=== PATIENT | male | born 1960 | race Caucasian/White ===

== ENCOUNTER 2017-12-24 12:48 | Emergency (ER) | payer OTHER ==
[~2017-12-24] VITALS: Ht 177.8 cm; Wt 83.0 kg
[2017-12-24 13:45] LABS: BASOPHILS % (AUTO) 0 % (0-10); EOSINOPHILS # (AUTO) 0.2 10^3/uL (0.0-0.3); EOSINOPHILS % (AUTO) 3 % (0-10); HEMATOCRIT 41 % (40-54); LYMPHOCYTES # (AUTO) 1.9 X 10^3 (1.0-4.0); LYMPHOCYTES % (AUTO) 32 % (12-44); MEAN CORPUSCULAR HEMOGLOBIN 32 PG (25-34); MEAN CORPUSCULAR HGB CONC 37 G/DL (32-36); MEAN CORPUSCULAR VOLUME 88 FL (80-99); MEAN PLATELET VOLUME 9.5 FL (7.4-10.4); MONOCYTES # (AUTO) 0.7 X 10^3 (0.0-1.0); MONOCYTES % (AUTO) 12 % (0-12); NEUTROPHILS # (AUTO) 3.1 X 10^3 (1.8-7.8); NEUTROPHILS % (AUTO) 53 % (42-75); PLATELET COUNT 229 10^3/uL (130-400); RED BLOOD COUNT 4.68 10^6/uL (4.35-5.85); RED CELL DISTRIBUTION WIDTH 12.8 % (10.0-14.5); WHITE BLOOD COUNT 5.9 10^3/uL (4.3-11.0)
--- NOTE | 2017-12-24 13:53 | Diagnostic Imaging Report ---
INDICATION: Heart palpitations. COMPARISON: None available. FINDINGS: The visible lungs are clear. The posterior lower lobes are poorly evaluated by portable radiography. No pleural effusion or pneumothorax. Normal cardiomediastinal silhouette and pulmonary vasculature. IMPRESSION: No acute cardiopulmonary process by portable radiography. Dictated by: Dictated on workstation # [id number]
[2017-12-24 14:03] LABS: ALANINE AMINOTRANSFERASE 19 U/L (0-55); ALBUMIN 4.1 GM/DL (3.2-4.5); ALKALINE PHOSPHATASE 65 U/L (40-136); BILIRUBIN,TOTAL 0.6 MG/DL (0.1-1.0); BUN/CREATININE RATIO 15; CALCIUM 9.6 MG/DL (8.5-10.1); CARBON DIOXIDE 25 MMOL/L (21-32); CHLORIDE 108 MMOL/L (98-107); CREATININE SERUM 1.11 MG/DL (0.60-1.30); GFR ESTIMATED > 60; GLUCOSE 102 MG/DL (70-105); MAGNESIUM 2.2 MG/DL (1.8-2.4); SODIUM 139 MMOL/L (135-145)
[2017-12-24 14:23] LABS: TSH (THYROID ANALYZER) 2.15 UIU/ML (0.35-4.94)
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
[2017-12-24] MEDS ORDERED: AMLO5TAB4 PO ×2 (15:46)
== END 2017-12-24 16:00 | disposition home or self-care (01) ==
LOC: MERGE 12:51 → ER 12:51
DX: I49.1 Atrial premature depolarization (principal); I10 Essential (primary) hypertension; Z87.442 Personal history of urinary calculi; Z87.19 Personal history of other diseases of the digestive system
CPT/HCPCS: 36415; 71045; 80053; 83735; 83880; 84443; 84484; 85025; 93005; 93041

== ENCOUNTER 2017-12-26 04:04 | Observation (INO) | payer OTHER ==
[~2017-12-26] VITALS: Ht 177.8 cm; Wt 80.7 kg
[2017-12-26] VITALS (9 sets, daily range): BP systolic 110–136; BP diastolic 71–83
[~2017-12-26 04:04] MED LIST: AMLO5TAB4 PO
[2017-12-26] MEDS ORDERED: ASPIRIN 81 MG CHEW (CHILDREN'S ASA) ONE (04:15)
[2017-12-26] MEDS ORDERED: NITROGLYCERIN 2% OINT 1 GM UNIT DOSE PACKET ONE (04:15)
[2017-12-26] MEDS: NITROGLYCERIN 2% OINT 1 GM UNIT DOSE PACKET TOP ONE (04:20)
[2017-12-26 04:28] LABS: BASOPHILS % (AUTO) 0 % (0-10); EOSINOPHILS # (AUTO) 0.2 10^3/uL (0.0-0.3); EOSINOPHILS % (AUTO) 3 % (0-10); HEMATOCRIT 43 % (40-54); HEMOGLOBIN 15.9 G/DL (13.3-17.7); LYMPHOCYTES # (AUTO) 1.8 X 10^3 (1.0-4.0); LYMPHOCYTES % (AUTO) 29 % (12-44); MEAN CORPUSCULAR HEMOGLOBIN 33 PG (25-34); MEAN CORPUSCULAR HGB CONC 37 G/DL (32-36); MEAN CORPUSCULAR VOLUME 89 FL (80-99); MEAN PLATELET VOLUME 9.9 FL (7.4-10.4); MONOCYTES # (AUTO) 0.7 X 10^3 (0.0-1.0); MONOCYTES % (AUTO) 12 % (0-12); NEUTROPHILS # (AUTO) 3.4 X 10^3 (1.8-7.8); NEUTROPHILS % (AUTO) 56 % (42-75); PLATELET COUNT 234 10^3/uL (130-400); RED BLOOD COUNT 4.89 10^6/uL (4.35-5.85); WHITE BLOOD COUNT 6.1 10^3/uL (4.3-11.0)
[2017-12-26] MEDS ORDERED: ASPIRIN 81 MG CHEW (CHILDREN'S ASA) PO ONE (04:30)
[2017-12-26 04:38] LABS: PROTHROMBIN TIME PATIENT 13.4 SEC (12.2-14.7)
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
[2017-12-26 04:48] LABS: ALANINE AMINOTRANSFERASE 21 U/L (0-55); ALBUMIN 4.4 GM/DL (3.2-4.5); ALKALINE PHOSPHATASE 73 U/L (40-136); AMYLASE 85 U/L (25-125); BILIRUBIN,TOTAL 0.6 MG/DL (0.1-1.0); BUN/CREATININE RATIO 19; CALCIUM 9.9 MG/DL (8.5-10.1); CARBON DIOXIDE 22 MMOL/L (21-32); CHLORIDE 107 MMOL/L (98-107); CREATINE KINASE 496 U/L (30-200); GFR ESTIMATED > 60; GLUCOSE 97 MG/DL (70-105); LIPASE 36 U/L (8-78); MAGNESIUM 2.4 MG/DL (1.8-2.4); POTASSIUM 4.4 MMOL/L (3.6-5.0); SODIUM 139 MMOL/L (135-145); TOTAL PROTEIN 7.6 GM/DL (6.4-8.2)
[2017-12-26 04:55] LABS: CREATINE KINASE MB 1.5 NG/ML (<6.6)
[2017-12-26] MEDS ORDERED: KETOROLAC 30 MG/ML VIAL IVP ONE (05:30)
--- NOTE | 2017-12-26 06:26 | Diagnostic Imaging Report ---
EXAMINATION: Chest radiograph, portable AP view. DATE: December 26, 2017 at 0422 hours. INDICATION: 57-year-old male, left-sided chest pain. COMPARISON: December 24, 2017. FINDINGS: Heart size and mediastinal contours are unchanged. There is no identified pneumothorax. There is no large pleural effusion. There is no identified focal airspace consolidation. IMPRESSION: No identified acute cardiopulmonary abnormality. Dictated by: Dictated on workstation # [id number]
[2017-12-26] MEDS ORDERED: morphine INJ 10 MG/ML 1ML (SYR OR VIAL) IV PRN (07:15)
[2017-12-26] MEDS ORDERED: NITROGLYCERIN 0.4 MG SL TABS BTL 25'S SL PRN (07:15)
[2017-12-26] MEDS ORDERED: D5 1/2 NS W/KCL 20 MEQ/L 1,000 ML IV SCH (07:15)
[2017-12-26 10:25] LABS: CHOLESTEROL 128 MG/DL (< 200); HDL CHOLESTEROL 35 MG/DL (40-60); TRIGLYCERIDES 83 MG/DL (<150); VLDL CHOLESTEROL 17 MG/DL (5-40)
[2017-12-26 10:32] LABS: CARDIAC PROFILE 2 < 0.30 NG/ML (<0.30); MYOGLOBIN SERUM 234.4 NG/ML (10.0-92.0)
--- NOTE | 2017-12-26 10:32 | History & Physicial-Cardiolgy ---
HPI-Cardiology Cardiology Consultation: Date of Consultation 12/26/17 Date of Admission Attending Physician Amy Rankin MD Admitting Physician Yohana,Local Physician Consulting Physician Amy RANKIN MD HPI: Time Seen by Provider: 11:15 Chief Complaint: Chest pain This is a 57-year-old gentleman who presented with complains of chest pain which was mild to moderate in intensity. Continued on for one hour. No significant radiation. No significant exacerbating or relieving factors. Intensity 4/10. Significant improvement with Nitropaste. However patient's blood pressure was also elevated. Patient also continues to feel skipped beats. Patient denies syncope, near-syncope, shortness of breath. Review of Systems-Cardiology Review of Systems Constitutional: As described under HPI; No As described under HPI, No no symptoms reported, No chills, No fever, No lightheadedness Eyes: No As described under HPI, No no symptoms reported, No blindness, No blurred vision, No contact lenses, No drainage, No decreased acuity, No foreign body sensation, No pain, No vision change Ears/Nose/Throat: No As described under HPI, No no symptoms reported, No chronic hearing loss, No ear discharge, No ear pain, No nasal drainage, No ulcerations Respiratory: No no symptoms reported; As described under HPI; No As described under HPI, No cough, No orthopnea, No shortness of breath, No SOB with excertion Cardiovascular: No no symptoms reported; As described under HPI; No As described under HPI; chest pain; No edema, No irregular heart rate, No lightheadedness, No palpitations Gastrointestinal: No no symptoms reported, No As described under HPI, No abdomen distended, No abdominal pain, No blood streaked bowels, No constipation , No diarrhea, No nausea, No vomiting, No stool coloration changes Genitourinary: No As described under HPI, No burning, No dysuria, No discharge , No frequency, No flank pain, No hematuria, No urgency Skin: No rash, No skin related problems, No ulcerations Psychiatric/Neurological: No anxiety, No depression, No seizure, No focal weakness, No syncope Hematologic: No bleeding abnormalities JHB-Clhybz-Zwlaxl Hx Patient Social History Alcohol Use: Rarely Uses Recreational Drug Use: No Smoking Status: Never a Smoker Recent Foreign Travel: No Recent Infectious Disease Expo: No Hospitalization with Isolation: Denies Physical Abuse Screen: No Sexual Abuse: No Past Medical History PMH As described under Assessment. Allergies and Home Medications Allergies Coded Allergies: No Known Drug Allergies (Unverified , 12/26/17) Home Medications Amlodipine Besylate 5 Mg Tablet, 5 MG PO DAILY Prescribed by: UNIQUE FAGAN on 12/24/17 1546 Aspirin 81 Mg Tablet.dr, 81 MG PO DAILY Prescribed by: Amy RANKIN on 12/26/17 1119 [Nitroglycerin] 0.4 MG BTL, 0 MG SL UD PRN for CHEST PAIN Prescribed by: Amy RANKIN on 12/26/17 1119 Patient Home Medication List Home Medication List Reviewed: Yes Physical Exam-Cardiology Physical Exam Vital Signs/I&O Capillary Refill : Less Than 3 Seconds Constitutional: appears stated age; No apparent distress; well-developed, well- nourished HEENT: PERRL; No discharge; hearing is well preserved, oral hygience is good; No ulceration, No xanthelasmas are seen Neck: No carotid bruit; carotid pulses are 2 + bilaterally Respiratory: chest is bilaterally symmetric, lungs clear to auscultation Cardiovascular: regular rate-rhythm, S1 and S2 Gastrointestinal: No tender, No soft, No round, No distended, No pulsatile mass , No organomegaly, No guarding, No rebound, No tenderness, No hernia, No mass, No audible bowel sounds, No abnormal bowel sounds, No abdominal bruits, No spleenomegaly, No other Rectal: deferred Extremities: No normal range of motion, No non-tender, No normal inspection, No pedal edema, No calf tenderness, No normal capillary refill, No pelvis stable , No calf tenderness, No inflammation, No pedal edema, No slow capillary refill , No swelling, No other, No abrasion, No clubbing, No cyanosis, No ecchymosis, No laceration, No no lower extremity edema bilateral, No significant edema, No tenderness, No wound Neurologic/Psychiatric: no motor/sensory deficits, alert, normal mood/affect, oriented x 3, power is 5/5 both on sides Skin: No rash, No ulcerations Data Review Labs Laboratory Tests 12/26/17 04:13: White Blood Count 6.1, Red Blood Count 4.89, Hemoglobin 15.9, Hematocrit 43, Mean Corpuscular Volume 89, Mean Corpuscular Hemoglobin 33, Mean Corpuscular Hemoglobin Concent 37H, Red Cell Distribution Width 13.0, Platelet Count 234, Mean Platelet Volume 9.9, Neutrophils (%) (Auto) 56, Lymphocytes (%) (Auto) 29, Monocytes (%) (Auto) 12, Eosinophils (%) (Auto) 3, Basophils (%) (Auto) 0, Neutrophils # (Auto) 3.4, Lymphocytes # (Auto) 1.8, Monocytes # (Auto) 0.7, Eosinophils # (Auto) 0.2, Basophils # (Auto) 0.0, Prothrombin Time 13.4, INR Comment 1.0, Activated Partial Thromboplast Time 32, Sodium Level 139, Potassium Level 4.4, Chloride Level 107, Carbon Dioxide Level 22, Anion Gap 10, Blood Urea Nitrogen 19H, Creatinine 1.00, Estimat Glomerular Filtration Rate > 60, BUN/Creatinine Ratio 19, Glucose Level 97, Calcium Level 9.9, Magnesium Level 2.4, Total Bilirubin 0.6, Aspartate Amino Transf (AST/SGOT) 28, Alanine Aminotransferase (ALT/SGPT) 21, Alkaline Phosphatase 73, Total Creatine Kinase 496H, Creatine Kinase MB 1.5, Troponin I < 0.30, B-Type Natriuretic Peptide 34.1 , Total Protein 7.6, Albumin 4.4, Amylase Level 85, Lipase 36 12/26/17 09:58: Troponin I < 0.30, Myoglobin 234.4H, Triglycerides Level 83, Cholesterol Level 128, LDL Cholesterol Direct 89, VLDL Cholesterol 17, HDL Cholesterol 35L ECG Impression ECG Initial ECG Rhythm: Normal Sinus, PAC A/P-Cardiology Assessment/Admission Diagnosis Chest pain, PACs, Hypertension Admission Status: Observation Plan Chest pain: ACS ruled out with serial negative troponin and EKG. Inpatient Nuclear stress test recommended but patient wants to go home. understands the risks. will continue aspirin. will prescribe ntg prn. Nuclear stress test early next week. Echo shows normal LVEF and no wall motion abnormalities. PACs: continue BB. Hypertension: continue BB and amlodipine. Kidney stones with occasional bleeding: decided not to give plavix. Lipid profile within reasonable limits. Clinical Quality Measures AMI/AHF: ASA po Prior to arrival: No DVT/VTE Risk/Contraindication: Risk Factor Score Per Nursin RFS Level Per Nursing on Admit: 1=Low/No VTE PPX Amy RANKIN MD Dec 26, 2017 10:31
--- NOTE | 2017-12-26 11:18 | Cardiology Discharge Summary ---
Diagnosis/Chief Complaint Date of Admission Dec 26, 2017 at 5:05 am Date of Discharge 12/26/2017 Admission Diagnosis Chest pain, PACs, hypertension Final/Discharge Diagnosis Chest pain, PACs, hypertension Chief Complaint/HPI Chief Complaint/HPI This is a 57-year-old gentleman who presented with complains of chest pain which was mild to moderate in intensity. Continued on for one hour. No significant radiation. No significant exacerbating or relieving factors. Intensity 4/10. Significant improvement with Nitropaste. However patient's blood pressure was also elevated. Patient also continues to feel skipped beats. Patient denies syncope, near-syncope, shortness of breath. Discharge Summary Procedures None. Discharge Physical Examination Normal cardiovascular examination Hospital Course Unremarkable. Pending Labs Discussion & Recommendations Discussion Nuclear stress test was recommended inpatient. However the patient wanted to leave. It will be scheduled as an outpatient. Patient understands all the risks. If he has any further prolonged chest pain he will seek immediate medical attention. He will be given when necessary nitroglycerin. He will continue aspirin. Amlodipine for blood pressure. No beta blockers since he has sinus bradycardia. Follow up appt.: Nuclear stress test next week. Follow-up with Dr. Rankin. Dicharge Diet: Cardiac Diet Activity as Tolerated: Yes Home Medications Reviewed patient Home Medication Reconciliation performed by pharmacy medication reconciliations operations technician and/or nursing. Patients Allergies have been reviewed. Discharge Home Medications: Reviewed and agree with Discharge Medication list on patient's Discharge Instruction sheet Condition at discharge Stable. Instructions to patient/family Discussed at length with the patient and family. Clinical Quality Measures AMI/AHF: ASA po Prior to arrival: No DVT/VTE Risk/Contraindication: Risk Factor Score Per Nursin RFS Level Per Nursing on Admit: 1=Low/No VTE PPX Amy RANKIN MD Dec 26, 2017 11:18
[2017-12-26] MEDS ORDERED: ASPI-983 PO ×2 (11:19)
[2017-12-26] MEDS ORDERED: Nitroglycerin SL ×2 (11:19)
--- NOTE | 2017-12-26 11:20 | Discharge Inst-Cardiology ---
Discharge Inst-Cardiac Patient Instructions Patient Instructions: Nuclear stress test as outpatient Return to [facility] For: chest pain Activity & Diet Discharge Diet: Cardiac Diet Drink 6-8 Glasses/Fluids/Day: Yes Activity as Tolerated: Yes Amy NAVA MD Dec 26, 2017 11:20 am
[2017-12-26] MEDS ORDERED: NITROGLYCERIN 2% OINT 1 GM UNIT DOSE PACKET TOP SCH (12:00)
[2017-12-27] MEDS ORDERED: ASPIRIN E.C. 81 MG (ECOTRIN) TAB PO SCH (09:00)
== END 2017-12-26 11:30 | disposition home or self-care (01) ==
LOC: EDUNIT# 04:04 → ER 04:06 → UNDOADMOB 05:05 → ICU 05:05 → MERGE 05:44 → ICU 05:44 → UNDODISOB 11:30
PROVIDERS: ADMIT Internal Medicine Interventional Cardiology; ATTEND Internal Medicine Interventional Cardiology
DX: R07.9 Chest pain, unspecified (principal); I49.1 Atrial premature depolarization; I10 Essential (primary) hypertension; Z87.442 Personal history of urinary calculi
CPT/HCPCS: 36415; 71045; 80053; 80061; 82150; 82550; 82553; 83690; 83735; 83874; 83880; 84484; 85025; 85610; 85730; 93005; 93041; 93306; 96374

== ENCOUNTER → 2017-12-30 | Outpatient (CLI) | payer OTHER ==
[~2017-12-30] MED LIST changes: +ASPI-983 PO; +CATHETER FLUSH 10 ML SYR IV PRN; +Nitroglycerin SL; +REGADENOSON 0.4 MG/5 ML SYR (LEXISCAN) IV ONE
[2017-12-30 09:29] VITALS: BP 158/98
--- NOTE | 2017-12-30 17:00 | Cardiology Stress Test Report ---
Stress Test Report Type of NM Stress Test: Test Type: LEXISCAN 0.4MG/5ML Date of Procedure/Referring: Date of Procedure: Dec 30, 2017 PCP Amy Rankin MD Admitting Physician No,Local Physician Indications: Chest pain Baseline Blood Pressure: Blood Pressure Systolic: 158 Blood Pressure Diastolic: 98 Summary: The patient was brought to the stress lab after informed consent was taken. Lexiscan stress test was performed according to the protocol. 0.4 mg of IV Lexiscan was given. Low-grade exercise was performed. Baseline EKG showed sinus rhythm at 45 BPM with blood pressure 150/90 mmHg. Maximum heart rate of 72 bpm and blood pressure of 158/98 mmHg. No chest pain, EKG changes or arrhythmias were noted. 10.97 mCi of Myoview were given for rest imaging and 28.4 mCi of Myoview were given for stress imaging. Transient ischemic dilatation score 1.08. Ejection fraction 62 percent with no wall motion abnormalities. Normal perfusion was noted during stress and rest imaging. Conclusion: Normal myocardial perfusion imaging during rest and stress. Normal LV function with no wall motion abnormalities. Amy RANKIN MD Dec 30, 2017 5:00 pm
== END ==
LOC: MERGE 06:56 → CARD 06:56
PROVIDERS: ATTEND Internal Medicine Interventional Cardiology
DX: R07.9 Chest pain, unspecified (principal)
CPT/HCPCS: 78452; 93017

== ENCOUNTER 2018-02-25 11:23 | Outpatient (CLI) | payer OTHER ==
[~2018-02-25] VITALS: Ht 177.8 cm; Wt 83.9 kg
[~2018-02-25 11:23] MED LIST changes: -AMLO5TAB7 PO; -CARV25TA PO; -CELE200C PO; -HYDR-3870 PO; -LOSA100T8 PO; -NITR-65 PO; -TAMS0.4C98 PO
[2018-02-25] MEDS ORDERED: CARV25TA PO (11:53)
[2018-02-25] MEDS ORDERED: AMLO5TAB7 PO (11:57)
[2018-02-25] MEDS ORDERED: LOSA100T8 PO (11:57)
[2018-02-25] MEDS ORDERED: CELE200C PO (11:57)
== END 2018-02-25 12:00 | disposition home or self-care (01) ==
LOC: PREOP 11:23
PROVIDERS: ATTEND Urology
DX: Z01.818 Encounter for other preprocedural examination (principal)

== ENCOUNTER → 2018-02-25 | Outpatient (CLI) | payer OTHER ==
[~2018-02-25] MED LIST changes: +AMLO5TAB7 PO; +CARV25TA PO; -CATHETER FLUSH 10 ML SYR IV PRN; +CELE200C PO; +HYDR-3870 PO; +LOSA100T8 PO; +NITR-65 PO; -REGADENOSON 0.4 MG/5 ML SYR (LEXISCAN) IV ONE; +TAMS0.4C98 PO
--- NOTE | 2018-02-25 11:51 | Diagnostic Imaging Report ---
Supine abdomen at 9:07. Indication: Nephrolithiasis. There are no prior studies available for comparison. There are calcific densities overlying both kidneys. The largest of these measures 1 cm and overlies the midportion of the right kidney. The other calcifications measure less than 5 mm in size. These calcifications may well be intrarenal. There is no sign of a calculus along the expected paths of the ureters. There do appear to be a few small rounded calcifications along the pelvis. These may represent phleboliths. There is no mass or organomegaly appreciated. The bowel gas pattern is nonspecific. There is moderate degenerative disc and bony disease in the lower lumbar spine. There is no acute abnormality identified. Surgiclips are evident in the right upper quadrant. Impression: 1. There are calcifications overlying both kidneys. These may well be intrarenal. If there is clinical concern regarding obstruction of either collecting system, then CT would be recommended for further study. 2. There is no acute abnormality of the abdomen or pelvis. Dictated by: Dictated on workstation # [id number]
== END ==
LOC: RAD 08:25
PROVIDERS: ATTEND Urology
DX: N20.0 Calculus of kidney (principal); N28.89 Other specified disorders of kidney and ureter
CPT/HCPCS: 74018

== ENCOUNTER 2018-03-01 08:46 | Day surgery (SDC) | payer OTHER ==
[~2018-03-01] VITALS: Ht 177.8 cm; Wt 83.9 kg
[~2018-03-01 08:46] MED LIST changes: +AMLO5TAB7 PO; +CARV25TA PO; +CELE200C PO; +LOSA100T8 PO
[2018-03-01 08:56] VITALS: BP 155/113
[2018-03-01] MEDS ORDERED: LACTATED RINGERS 1,000 ML IV PRN (09:13)
--- NOTE | 2018-03-01 09:13 | Progress Note-Pre Operative ---
Pre-Operative Progress Note H&P Reviewed The H&P was reviewed, patient examined and no changes noted. Date Seen by Provider: Mar 01, 2018 Time Seen by Provider: 09:13 Date H&P Reviewed: Mar 01, 2018 Time H&P Reviewed: 09:13 Pre-Operative Diagnosis: RT RENAL STONE VALERIA AGRAWAL MD Mar 01, 2018 9:13 am
[2018-03-01] MEDS ORDERED: cefTRIAXone FOR IV USE 1,000 MG in NS (IVPB) 50 ML IV ONE (09:15)
[2018-03-01] MEDS ORDERED: CATHETER FLUSH 10 ML SYR IV PRN (09:45)
--- NOTE | 2018-03-01 09:46 | Diagnostic Imaging Report ---
INDICATION: Nephrolithiasis. Comparison made with prior examination from 02/25/18. FINDINGS: Bowel gas pattern is nonspecific. There are calcifications projected over both kidneys compatible with nephrolithiasis. There are mild degenerative changes in the spine. There are surgical clips in the right upper quadrant. IMPRESSION: Unchanged bilateral nephrolithiasis. Nonspecific bowel gas pattern. Dictated by: Dictated on workstation # [id number]
[2018-03-01] MEDS ORDERED: MIDAZOLAM 2 MG/2 ML (VERSED) VIAL ONE (11:40)
[2018-03-01] MEDS ORDERED: SEVOFLURANE (ULTANE) 15 ML INHAL SOLN ONE (11:40)
[2018-03-01] MEDS ORDERED: LIDOCAINE PF 2% 2 ML (XYLOCAINE) VIAL ONE (11:40)
[2018-03-01] MEDS ORDERED: proPOfol 200 MG/20 ML (DIPRIVAN) VIAL IV ONE (11:40)
[2018-03-01] MEDS ORDERED: fentaNYL INJECTION 100 MCG/2 ML AMP ONE (11:40)
[2018-03-01] MEDS ORDERED: ONDANSETRON 4 MG/2 ML (SDV) Z0FRAN ONE (11:40)
[2018-03-01] MEDS ORDERED: KETOROLAC 30 MG/ML VIAL ONE (12:10)
[2018-03-01] MEDS ORDERED: FUROSEMIDE 40 MG/4 ML INJ (LASIX) ONE (12:10)
--- NOTE | 2018-03-01 12:10 | Discharge Inst-Urology ---
Discharge Inst-Urology Discharge Medications New, Converted, or Re-newed RX: RX on Chart Patient Instructions/Follow Up Plan Please make appointment to been seen in office , KUB prior to it KUB on way home Post ESWL instructions Increase oral fluids for 48 hours and then as needed. Diet and Activity as tolerated. If questions or concerns contact your physician Or seek help at emergency department. VALERIA AGRAWAL MD Mar 01, 2018 12:10 pm
--- NOTE | 2018-03-01 12:13 | Progress Note-Post Operative ---
Post-Operative Progess Note Surgeon (s)/Cabin Service Agent (s) Surgeon VALERIA AGRAWAL MD Cabin Service Agent: NONE Pre-Operative Diagnosis RT RENAL STONE Post-Operative Diagnosis SAME Procedure & Operative Findings Date of Procedure 03/01/18 Procedure Performed/Findings RT ESWL Anesthesia Type GENERAL Estimated Blood Loss Estimated blood loss (mL): NONE Specimens/Packing Specimens Removed NONE Packing: NONE VALERIA AGRAWAL MD Mar 01, 2018 12:13
[2018-03-01] MEDS ORDERED: fentaNYL INJECTION 100 MCG/2 ML AMP IVP ONE (12:45)
[2018-03-01] MEDS ORDERED: HYDROmorphone 2 MG/ML VIAL (DILAUDID) IV ONE (12:45)
[2018-03-01] MEDS ORDERED: MEPERIDINE (DEMEROL) INJ 50 MG/ML IVP ONE (12:45)
[2018-03-01] MEDS ORDERED: ONDANSETRON 4 MG/2 ML (SDV) Z0FRAN IVP PRN (12:45)
--- NOTE | 2018-03-01 12:53 | Anesthesia-General Post-Op ---
General Patient Condition Mental Status/LOC: Same as Preop Cardiovascular: Satisfactory Nausea/Vomiting: Absent Respiratory: Satisfactory Pain: Controlled Complications: Absent Post Op Complications Complications None Follow Up Care/Instructions Patient Instructions None needed. Anesthesia/Patient Condition Patient Condition Patient is doing well, no complaints, stable vital signs, no apparent adverse anesthesia problems. No complications reported per nursing. D/C home per [facility] Criteria: Yes SRIDHAR JASSO CRNA Mar 01, 2018 12:53
[2018-03-01 13:25] VITALS: BP 142/97
[2018-03-01] MEDS ORDERED: NITR-65 PO (13:29)
[2018-03-01] MEDS ORDERED: TAMS0.4C98 PO (13:29)
[2018-03-01] MEDS ORDERED: HYDR-3870 PO (13:29)
[2018-03-01 13:55] VITALS: BP 126/93
[2018-03-01 14:25] VITALS: BP 140/90
[2018-03-01 14:45] VITALS: BP 140/90
--- NOTE | 2018-03-01 15:12 | Diagnostic Imaging Report ---
INDICATION: Post extracorporeal shock wave lithotripsy, nephrolithiasis. TECHNIQUE: Single supine view of the abdomen at 2:56 PM. CORRELATION STUDY: 03/01/2018. FINDINGS: Multiple calcifications over the bilateral renal silhouettes are again demonstrated. On the right, there has been a change in the appearance and distribution. What appears to be a larger stone over the inferior pole appears to be somewhat more fragmented with some calcification now suggested about the mid to superior portion. Calcifications over the left kidney appear unchanged. No definitive calcification along the expected course of either ureter with small calcifications in the pelvis unchanged. IMPRESSION: Change in the appearance and distribution of the calcifications over the right kidney from earlier in the day. Left sided nephrolithiasis appearing generally stable. Dictated by: Dictated on workstation # [id number]
--- NOTE | 2018-03-01 18:47 | OPERATIVE REPORT ---
DATE OF SERVICE: 03/01/2018 PREOPERATIVE DIAGNOSIS: Right renal stone. POSTOPERATIVE DIAGNOSIS: Right renal stone. OPERATION PERFORMED: Right ESWL. SURGEON: Mahendra Agrawal MD ANESTHESIA: General. COMPLICATIONS: None. DESCRIPTION OF PROCEDURE: Under satisfactory general anesthesia, the patient in supine position on the ESWL table, the right renal stone was localized. Stone was delivered at kV of 4, 2500 shocks completely fragment the stone. The patient received 40 mg of Lasix and 30 mg of Toradol IV at the end of the procedure. He tolerated the procedure and anesthesia well and was sent to recovery room in stable condition. Job ID: [id number] DocumentID: [id number] Dictated Date: 03/01/2018 12:23:04 Social Services Analyst Date: 03/01/2018 18:46:57 Dictated By: MAHENDRA AGRAWAL MD
== END 2018-03-01 14:45 | disposition home or self-care (01) ==
LOC: SDC 08:46
PROVIDERS: ATTEND Urology
DX: N20.0 Calculus of kidney (principal); I10 Essential (primary) hypertension; Z79.899 Other long term (current) drug therapy
CPT/HCPCS: 74018; 87081

== ENCOUNTER 2018-03-15 05:30 | Outpatient (CLI) | payer OTHER ==
[~2018-03-15] VITALS: Ht 177.8 cm; Wt 83.9 kg
[2018-03-16] MEDS ORDERED: NITR-65 PO (11:44)
[2018-03-16] MEDS ORDERED: TAMS0.4C98 PO (11:44)
[2018-03-16] MEDS ORDERED: HYDR-3870 PO (11:44)
== END 2018-03-15 15:31 | disposition home or self-care (01) ==
LOC: PREOP 05:30
PROVIDERS: ATTEND Urology
DX: Z01.818 Encounter for other preprocedural examination (principal)

== ENCOUNTER → 2018-03-15 | Outpatient (CLI) | payer OTHER ==
[~2018-03-15] MED LIST changes: +HYDR-3870 PO; +NITR-65 PO; +TAMS0.4C98 PO
--- NOTE | 2018-03-15 14:22 | Diagnostic Imaging Report ---
INDICATION: Right renal stone. Comparison made with prior examination 03/01/2018. Two views were obtained. FINDINGS: There are persistent stones projected over both kidneys. There are few calcified phleboliths in the pelvis. Bowel gas pattern is nonspecific. There are surgical clips in right upper quadrant. IMPRESSION: Bilateral nephrolithiasis. Nonspecific bowel gas pattern. Dictated by: Dictated on workstation # [id number]
== END ==
LOC: RAD 12:41
PROVIDERS: ATTEND Urology
DX: N20.0 Calculus of kidney (principal)
CPT/HCPCS: 74018

== ENCOUNTER 2018-03-16 07:00 | Day surgery (SDC) | payer OTHER ==
[~2018-03-16] VITALS: Ht 177.8 cm; Wt 83.9 kg
[2018-03-16] MEDS ORDERED: cefTRIAXone FOR IV USE 1,000 MG in NS (IVPB) 50 ML IV ONE (07:15)
[2018-03-16 07:25] VITALS: BP 160/108
[2018-03-16] MEDS: LACTATED RINGERS 1,000 ML IV PRN ×2 (07:40→09:45)
[2018-03-16] MEDS ORDERED: CATHETER FLUSH 10 ML SYR IV PRN (07:45)
--- NOTE | 2018-03-16 08:09 | Progress Note-Pre Operative ---
Pre-Operative Progress Note H&P Reviewed The H&P was reviewed, patient examined and no changes noted. Date Seen by Provider: Mar 16, 2018 Time Seen by Provider: 08:08 Date H&P Reviewed: Mar 16, 2018 Time H&P Reviewed: 08:08 Pre-Operative Diagnosis: LT RENAL STONE VALERIA AGRAWAL MD Mar 16, 2018 8:09 am
--- NOTE | 2018-03-16 08:27 | Diagnostic Imaging Report ---
INDICATION: Left renal stone. TECHNIQUE: Single supine view of the abdomen 7:50 AM CORRELATION STUDY: 03/15/2018 FINDINGS: Calcification again project over both renal silhouettes. Largest projecting over the inferior pole right kidney measures 9 mm. Largest over the mid to superior pole left kidney measuring approximately 7 mm. Additional smaller ones over the mid inferior pole left kidney. Overall stone burden in appearance is generally stable. Calcification of the pelvis appear unchanged favoring phleboliths. Nonobstructive appearing bowel gas pattern. Mild rightward curvature of the lumbar spine with apex at L3. IMPRESSION: 1. Findings compatible with bilateral renal stones. Stone burden overall appearing generally stable. Dictated by: Dictated on workstation # [id number]
[2018-03-16] MEDS ORDERED: fentaNYL INJECTION 100 MCG/2 ML AMP ONE (09:29)
[2018-03-16] MEDS ORDERED: MIDAZOLAM 2 MG/2 ML (VERSED) VIAL ONE (09:29)
[2018-03-16] MEDS ORDERED: proPOfol 200 MG/20 ML (DIPRIVAN) VIAL IV ONE (09:34)
[2018-03-16] MEDS ORDERED: FUROSEMIDE 40 MG/4 ML INJ (LASIX) ONE (09:34)
[2018-03-16] MEDS ORDERED: LIDOCAINE PF 2% 5 ML (XYLOCAINE) VIAL ONE (09:34)
[2018-03-16] MEDS ORDERED: SEVOFLURANE (ULTANE) 15 ML INHAL SOLN ONE ×2 (09:34→10:17)
[2018-03-16] MEDS ORDERED: KETOROLAC 30 MG/ML VIAL ONE (09:34)
[2018-03-16] MEDS ORDERED: DEXAMETHASONE 10 MG/ML (DECADRON) 1 ML VIAL ONE (09:34)
[2018-03-16] MEDS ORDERED: ONDANSETRON 4 MG/2 ML (SDV) Z0FRAN ONE (09:34)
--- NOTE | 2018-03-16 10:15 | Progress Note-Post Operative ---
Post-Operative Progess Note Surgeon (s)/Plan Manager (s) Surgeon VALERIA AGRAWAL MD Plan Manager: NONE Pre-Operative Diagnosis LT RENAL STONE Post-Operative Diagnosis SAME Procedure & Operative Findings Date of Procedure 03/16/18 Procedure Performed/Findings LT ESWL Anesthesia Type GENERAL Estimated Blood Loss Estimated blood loss (mL): NONE Specimens/Packing Specimens Removed NONE Packing: NONE VALERIA AGRAWAL MD Mar 16, 2018 10:15 am
--- NOTE | 2018-03-16 10:17 | Discharge Inst-Urology ---
Discharge Inst-Urology Discharge Medications New, Converted, or Re-newed RX: RX on Chart Patient Instructions/Follow Up Plan Please make appointment to been seen in office in 2 weeks. KUB prior to it KUB on way home Post ESWL instructions Increase oral fluids for 48 hours and then as needed. Diet and Activity as tolerated. If questions or concerns contact your physician Or seek help at emergency department. VALERIA AGRAWAL MD Mar 16, 2018 10:17 am
[2018-03-16] MEDS ORDERED: NS IV 1000 ML 1,000 ML IV SCH (10:45)
[2018-03-16] MEDS ORDERED: HYDROmorphone 2 MG/ML VIAL (DILAUDID) ONE (10:49)
[2018-03-16] MEDS ORDERED: HYDROmorphone 2 MG/ML VIAL (DILAUDID) IV ONE (11:00)
[2018-03-16 11:30] VITALS: BP 114/81
[2018-03-16 11:35] VITALS: BP 114/81
[2018-03-16] MEDS ORDERED: TAMS0.4C98 PO (11:44)
[2018-03-16] MEDS ORDERED: NITR-65 PO (11:44)
[2018-03-16] MEDS ORDERED: HYDR-3870 PO (11:44)
[2018-03-16 12:00] VITALS: BP 120/78
[2018-03-16 12:30] VITALS: BP 109/75
--- NOTE | 2018-03-16 13:18 | OPERATIVE REPORT ---
DATE OF SERVICE: 03/16/2018 PREOPERATIVE DIAGNOSIS: Left renal stones. POSTOPERATIVE DIAGNOSIS: Left renal stones. OPERATION PERFORMED: Left ESWL. SURGEON: Mahendra Agrawal MD ANESTHESIA: General. COMPLICATIONS: None. DESCRIPTION OF PROCEDURE: Under satisfactory general anesthesia, the patient in supine position on the ESWL table. The left larger stone was localized. Shocks were delivered at a kV of 4. Total of 1500 shocks completely fragmented the stone that was not visualized any more. The other stones in the kidney were too small to blast any way. The patient received 40 mg of Lasix and 30 mg of Toradol IV at the end of the procedure. He tolerated the procedure and anesthesia well and was sent to recovery room in stable condition. Job ID: [id number] DocumentID: [id number] Dictated Date: 03/16/2018 10:20:56 Commissioning Engineer Date: 03/16/2018 13:17:46 Dictated By: MAHENDRA AGRAWAL MD
--- NOTE | 2018-03-16 13:19 | Diagnostic Imaging Report ---
INDICATION: Post extracorporeal shockwave lithotripsy. TECHNIQUE: Single supine view of the abdomen at 12:23 p.m. CORRELATION STUDY: 03/16/2018. FINDINGS: Rounded calcification of the inferior pole of the right kidney, unchanged. There appears to be some interval fragmentation of the calcifications over the left kidney, particularly at the more superior pole calcification. Overall size and region of the calcification appears generally stable. No definitive calcification along the expected course of either ureter. Multiple calcifications of the pelvis are present. IMPRESSION: 1. Some interval fragmentation is suggest about the left renal stones. Dictated by: Dictated on workstation # [id number]
--- NOTE | 2018-03-16 15:17 | Anesthesia-General Post-Op ---
General Patient Condition Mental Status/LOC: Same as Preop Cardiovascular: Satisfactory Nausea/Vomiting: Absent Respiratory: Satisfactory Pain: Controlled Complications: Absent Post Op Complications Complications None Follow Up Care/Instructions Patient Instructions None needed. Anesthesia/Patient Condition Patient Condition Patient was seen after the procedure and he was doing well, no complaints, stable vital signs, no apparent adverse anesthesia problems. SINGH OREILLY DO Mar 16, 2018 15:17
== END 2018-03-16 12:50 | disposition home or self-care (01) ==
LOC: SDC 07:00
PROVIDERS: ATTEND Urology
DX: N20.0 Calculus of kidney (principal); I10 Essential (primary) hypertension; Z79.899 Other long term (current) drug therapy
CPT/HCPCS: 74018; 87081

== ENCOUNTER → 2018-03-30 | Outpatient (CLI) | payer OTHER ==
--- NOTE | 2018-03-30 15:43 | Diagnostic Imaging Report ---
INDICATION: Status post left-sided lithotripsy. TIME OF EXAM: 2:25 PM COMPARISON: Correlation is made with prior exam from 03/16/2018. FINDINGS: Calcific density overlies the right kidney, unchanged. There are multiple calcific densities overlying the left kidney. There may be some fragmentation of the calculi since prior study, status post lithotripsy. No definite ureteral calculi are seen. Bowel gas pattern is unremarkable. IMPRESSION: There has been some fragmentation of left-sided renal calculi, status post lithotripsy. No ureteral calculi are seen. Dictated by: Dictated on workstation # [id number]
== END ==
LOC: RAD 13:56
PROVIDERS: ATTEND Urology
DX: N20.0 Calculus of kidney (principal); Z98.890 Other specified postprocedural states
CPT/HCPCS: 74018; 88300

== ENCOUNTER 2018-04-09 08:09 | Outpatient (RCR) | payer OTHER ==
[~2018-04-09 08:09] MED LIST changes: -AMLO5TAB7 PO; +AMLO5TAB9 PO; +LOSA100T57 PO; -LOSA100T8 PO
== END 2018-06-28 | disposition home or self-care (01) ==
LOC: LAB 08:09
PROVIDERS: ATTEND Urology
DX: N20.0 Calculus of kidney (principal)
CPT/HCPCS: 36415; 82140; 82340; 82507; 82570; 83735; 83945; 83986; 84105; 84133; 84300; 84392; 84560

== ENCOUNTER → 2018-04-27 | Outpatient (CLI) | payer OTHER ==
[~2018-04-27] MED LIST changes: +AMLO5TAB7 PO; -AMLO5TAB9 PO; -LOSA100T57 PO; +LOSA100T8 PO
--- NOTE | 2018-04-27 15:41 | Diagnostic Imaging Report ---
INDICATION: Nephrolithiasis. EXAMINATION: KUB. FINDINGS: There are several stone fragments projecting over the lower pole of the left kidney. There is a 6 mm calculus projecting over the inferior pole of the right kidney. IMPRESSION: Bilateral nephrolithiasis. No appreciable change since 03/30/2018. Dictated by: Dictated on workstation # [id number]
== END ==
LOC: RAD 14:45
PROVIDERS: ATTEND Urology
DX: N20.0 Calculus of kidney (principal)
CPT/HCPCS: 74018

== ENCOUNTER 2019-01-30 05:34 | Outpatient (CLI) | payer BC ==
[~2019-01-30] VITALS: Ht 177.8 cm; Wt 72.6 kg
[~2019-01-30 05:34] MED LIST changes: -AMLO5TAB7 PO; +AMLO5TAB9 PO; +LOSA100T57 PO; -LOSA100T8 PO
[2019-01-30] MEDS ORDERED: HYDR-3820 PO (09:11)
[2019-01-30] MEDS ORDERED: BACL10TA PO (09:11)
[2019-01-31] MEDS ORDERED: HYDR-3870 PO (13:14)
[2019-01-31] MEDS ORDERED: TAMS0.4C98 PO (13:14)
[2019-01-31] MEDS ORDERED: NITR-65 PO (13:14)
== END 2019-01-30 09:20 | disposition home or self-care (01) ==
LOC: PREOP 05:34
PROVIDERS: ATTEND Urology
DX: Z01.818 Encounter for other preprocedural examination (principal); N20.0 Calculus of kidney

== ENCOUNTER 2019-01-31 07:21 | Day surgery (SDC) | payer BC, OTHER ==
[~2019-01-31] VITALS: Ht 177.8 cm; Wt 72.6 kg
[2019-01-31] VITALS (9 sets, daily range): BP systolic 116–177; BP diastolic 75–103
[~2019-01-31 07:21] MED LIST changes: +BACL10TA PO; +HYDR-3820 PO
[2019-01-31] MEDS: LACTATED RINGERS 1,000 ML IV PRN ×2 (07:45→11:06)
[2019-01-31] MEDS ORDERED: cefTRIAXone FOR IV USE 1,000 MG in WATER (STERILE) FOR INJECTION 10 ML IV ONE (07:45)
--- NOTE | 2019-01-31 07:46 | Progress Note-Pre Operative ---
Pre-Operative Progress Note H&P Reviewed The H&P was reviewed, patient examined and no changes noted. Date Seen by Provider: Jan 31, 2019 Time Seen by Provider: 07:45 Date H&P Reviewed: Jan 31, 2019 Time H&P Reviewed: 07:45 Pre-Operative Diagnosis: LT RENAL STONE VALERIA AGRAWAL MD Jan 31, 2019 07:46
[2019-01-31] MEDS ORDERED: MIDAZOLAM 2 MG/2 ML (VERSED) VIAL IV ONE (08:45)
--- NOTE | 2019-01-31 09:11 | Diagnostic Imaging Report ---
INDICATION: Renal stones. COMPARISON: 01/27/2019. EXAMINATION: Two radiographs of the abdomen dated 01/31/2019. FINDINGS: There are surgical clips within the right upper quadrant of the abdomen. The 0.9 cm calcification overlying the right renal shadow is again identified and stable. Multiple calcifications are again identified overlying the left renal shadow with the largest measuring 0.5 cm. These calcifications do not appear significantly changed since the prior examination. Phleboliths within the lower pelvis appear stable. No new calcifications along the expected course of the bilateral ureters. Nonobstructed bowel gas pattern. [place] right curvature of the spine with associated degenerative changes. No acute osseous abnormality. IMPRESSION: Bilateral renal calculi with the stone burden appearing similar to the prior examination. Dictated by: Dictated on workstation # [id number]
[2019-01-31] MEDS ORDERED: MIDAZOLAM 2 MG/2 ML (VERSED) VIAL ONE (10:24)
[2019-01-31] MEDS ORDERED: LIDOCAINE PF 2% 5 ML (XYLOCAINE) VIAL ONE (10:24)
[2019-01-31] MEDS ORDERED: proPOfol 200 MG/20 ML (DIPRIVAN) VIAL IV ONE (10:24)
[2019-01-31] MEDS ORDERED: ONDANSETRON 4 MG/2 ML (SDV) Z0FRAN ONE (10:24)
[2019-01-31] MEDS ORDERED: fentaNYL INJECTION 100 MCG/2 ML AMP ONE (10:24)
[2019-01-31] MEDS ORDERED: FUROSEMIDE 40 MG/4 ML INJ (LASIX) ONE (10:27)
[2019-01-31] MEDS ORDERED: KETOROLAC 30 MG/ML VIAL ONE (10:27)
[2019-01-31] MEDS ORDERED: SEVOFLURANE (ULTANE) 15 ML INHAL SOLN ONE ×7 (10:27→11:57)
--- NOTE | 2019-01-31 10:55 | Progress Note-Post Operative ---
Post-Operative Progess Note Surgeon (s)/Advertising Statistical Clerk (s) Surgeon VALERIA AGRAWAL MD Advertising Statistical Clerk: NONE Pre-Operative Diagnosis BILATERAL RENAL STONES Post-Operative Diagnosis SAME Procedure & Operative Findings Date of Procedure 01/31/19 Procedure Performed/Findings BILATERAL ESWL Anesthesia Type GENERAL Estimated Blood Loss Estimated blood loss (mL): NONE Specimens/Packing Specimens Removed NONE Packing: NONE VALERIA AGRAWAL MD Jan 31, 2019 10:55
--- NOTE | 2019-01-31 10:58 | Discharge Inst-Urology ---
Discharge Inst-Urology Reconcile Patient Problems Problems Reviewed?: Yes Patient Instructions/Follow Up Plan/Assessment/Instructions Please make appointment to been seen in office in 2 weeks. KUB prior to it KUB on way home Post ESWL instructions Increase oral fluids for 48 hours and then as needed. Diet and Activity as tolerated. If questions or concerns contact your physician Or seek help at emergency department. VALERIA AGRAWAL MD Jan 31, 2019 10:58
[2019-01-31] MEDS ORDERED: fentaNYL INJECTION 100 MCG/2 ML AMP IVP ONE (12:30)
[2019-01-31] MEDS ORDERED: ONDANSETRON 4 MG/2 ML (SDV) Z0FRAN IVP PRN (12:30)
[2019-01-31] MEDS ORDERED: TAMS0.4C98 PO (13:14)
[2019-01-31] MEDS ORDERED: NITR-65 PO (13:14)
[2019-01-31] MEDS ORDERED: HYDR-3870 PO (13:14)
--- NOTE | 2019-01-31 14:23 | OPERATIVE REPORT ---
DATE OF SERVICE: 01/31/2019 PREOPERATIVE DIAGNOSIS: Bilateral renal stones. POSTOPERATIVE DIAGNOSIS: Bilateral renal stones. OPERATION PERFORMED: Bilateral ESWL. SURGEON: Mahendra Agrawal MD ANESTHESIA: General. COMPLICATIONS: None. DESCRIPTION OF PROCEDURE: Under satisfactory general anesthesia, the patient in supine position on the ESWL table, we first localized the right renal stone. Delivered shocks at kV of 6 and 3,000 shocks showed good fragmentation of the stone with good layering. We directed the attention to the left side of the machine around, localized the bigger stone in the lower half of the kidney and delivered shocks at kV of 6, a total of 3000 again and there was good fragmentation and layering. The other upper stone was too small for fragmentation. The patient received 40 mg of Lasix and 30 mg of Toradol IV at the end of the procedure. He tolerated the procedure and anesthesia well and was sent to recovery room in stable condition. Job ID: [id number] DocumentID: [id number] Dictated Date: 01/31/2019 12:02:13 Track Car Operator Date: 01/31/2019 14:22:38 Dictated By: MAHENDRA AGRAWAL MD
--- NOTE | 2019-01-31 14:51 | Anesthesia-General Post-Op ---
General Patient Condition Mental Status/LOC: Same as Preop Cardiovascular: Satisfactory Nausea/Vomiting: Absent Respiratory: Satisfactory Pain: Controlled Complications: Absent Post Op Complications Complications None Follow Up Care/Instructions Patient Instructions None needed. Anesthesia/Patient Condition Patient Condition Patient was seen after the procedure and he was doing well, no complaints, stable vital signs, no apparent adverse anesthesia problems. SINGH OREILLY DO Jan 31, 2019 14:51
--- NOTE | 2019-01-31 19:35 | Diagnostic Imaging Report ---
INDICATION: Nephrolithiasis. COMPARISON: Comparison made with prior examination earlier the same day. FINDINGS: There is persistent bilateral nephrolithiasis. There is a new stone fragment near the right UVJ. The stone in the right kidney does appear more fragmented compared to the prior examination. IMPRESSION: 1. Persistent bilateral nephrolithiasis although the stone on the right appears somewhat fragmented. 2. New stone fragment near the right UVJ. Dictated by: Dictated on workstation # [id number]
== END 2019-01-31 14:05 | disposition home or self-care (01) ==
LOC: SDC 07:21
PROVIDERS: ATTEND Urology
DX: N20.0 Calculus of kidney (principal); I10 Essential (primary) hypertension; N40.0 Benign prostatic hyperplasia without lower urinary tract symptoms; C09.9 Malignant neoplasm of tonsil, unspecified; Z88.6 Allergy status to analgesic agent
CPT/HCPCS: 74018; 87081

== ENCOUNTER → 2019-02-14 | Outpatient (CLI) | payer BC ==
--- NOTE | 2019-02-14 16:05 | Diagnostic Imaging Report ---
INDICATION: Kidney stone, status post lithotripsy. TIME OF EXAM: 02:39 p.m. COMPARISON: Correlation is made with abdominal radiograph from 01/31/2019. FINDINGS: Postop changes of cholecystectomy are noted. Stone fragments overlying right renal shadow on prior study are not appreciated on today's study. There is a calcific density in the right paramidline pelvis, indeterminate. Possibility of a bladder calculus cannot be entirely excluded. Left-sided pelvic calculi are likely phleboliths and appear unchanged. Calcifications overlying the upper, mid, and lower pole of left kidney are similar to prior exam. IMPRESSION: Right-sided renal calculi are no longer visualized. There is a calculus near the midline of the pelvis as described, perhaps bladder calculus. Left-sided renal calculi are unchanged. Dictated by: Dictated on workstation # [id number]
== END ==
LOC: RAD 14:27
PROVIDERS: ATTEND Urology
DX: N20.0 Calculus of kidney (principal); Z90.49 Acquired absence of other specified parts of digestive tract; Z98.890 Other specified postprocedural states
CPT/HCPCS: 74018